=== PATIENT | male | born 1955 | race Caucasian/White ===

== ENCOUNTER 2023-02-27 13:50 | Emergency (ER) | payer OTHER, MEDICARE ==
[2023-02-27 14:03] VITALS: TEMP 97.6; BMI 22.0
[2023-02-27 15:56] LABS: HEMATOCRIT 42.3 % (35.4-49); HEMOGLOBIN 14.2 G/dL (11.7-16.9); MCH 31.6 pg (25.7-33.7); MCHC 33.5 g/dl (32.0-35.9); MEAN CELL VOLUME 94.2 fl (80-96); MEAN PLT VOLUME 8.5 fl (7.5-11.1); PLATELET COUNT 171.4 10^3/uL (134-434); RBC 4.49 10^6/uL (4.00-5.60); RDW 13.4 % (11.9-15.9); WHITE BLOOD COUNT 6.6 10^3/uL (4.0-10.8)
[2023-02-27 16:18] LABS: ALBUMIN 4.3 g/dl (3.4-5.0); BILIRUBIN,TOTAL 0.6 mg/dl (0.2-1); CALCIUM 9.5 mg/dl (8.5-10.1); POTASSIUM 4.5 mmol/L (3.5-5.1); TOT PROT 6.3 g/dl (6.4-8.2)
[2023-02-27 16:31] LABS: PLATELET ESTIMATE ADEQUATE
[2023-02-27 20:26] VITALS: BP 122/79; PULSE 73; RESP 16
== END 2023-02-27 21:02 | disposition home or self-care (01) ==
LOC: FER 13:50
DX: R31.0 Gross hematuria (principal)
CPT/HCPCS: 36415; 74178-TC; 80053; 81003; 81015; 85027; 87086; 99284-25; Q9967